=== PATIENT | female | born 1940 | race Caucasian/White ===

== ENCOUNTER → 2016-08-03 | Outpatient (CLI) | payer MEDICARE | LOC: EMI 07-29 10:00 → MRI 10:57 → EMI 11:15 → MRI 11:15 | DX: M48.06 Spinal stenosis, lumbar region (principal); R55 Syncope and collapse; R29.6 Repeated falls; M51.36 Other intervertebral disc degeneration, lumbar region; M47.816 Spondylosis without myelopathy or radiculopathy, lumbar region | CPT/HCPCS: 72148 ==

== ENCOUNTER → 2020-03-31 | Outpatient (CLI) | payer MEDICARE ==
[~2020-03-31] MED LIST: AMLODIPINE BESYL5 MG PO; CELEXA10 MG PO; CITALOPRAM PO; CYCLOBENZAPRINE5 MG PO; ECOTRIN81 MG PO; LORAZEPAM0.5 MG PO; MECLIZINE HCL12.5 MG PO; MELOXICAM7.5 MG PO; PANTOPRAZOLE SO40 MG PO; PRAVASTATIN SOD40 MG PO; TOPROL XL25 MG PO; TYLENOL W/CODEIN1 E1 PO; VIT D2 PO; VITAMIN D250000 UNIT PO
== END ==
LOC: KOH-I 11:04
DX: R07.89 Other chest pain (principal)
CPT/HCPCS: 71046

== ENCOUNTER → 2020-05-17 | Outpatient (CLI) | payer MEDICARE | LOC: KOH-I 15:01 | DX: M54.6 Pain in thoracic spine (principal); M43.8X4 Other specified deforming dorsopathies, thoracic region; Z98.1 Arthrodesis status; M43.8X5 Other specified deforming dorsopathies, thoracolumbar region | CPT/HCPCS: 72070 ==

== ENCOUNTER → 2020-05-21 | Outpatient (CLI) | payer MEDICARE | LOC: KOH-I 11:19 | DX: S32.010A Wedge compression fracture of first lumbar vertebra, initial encounter for closed fracture (principal); S22.060A Wedge compression fracture of T7-T8 vertebra, initial encounter for closed fracture; S22.070A Wedge compression fracture of T9-T10 vertebra, initial encounter for closed fracture; S22.000A Wedge compression fracture of unspecified thoracic vertebra, initial encounter for closed fracture; R29.898 Other symptoms and signs involving the musculoskeletal system; M54.16 Radiculopathy, lumbar region; M81.0 Age-related osteoporosis without current pathological fracture; R29.6 Repeated falls; M54.14 Radiculopathy, thoracic region; M40.204 Unspecified kyphosis, thoracic region; R29.890 Loss of height; M51.86 Other intervertebral disc disorders, lumbar region | CPT/HCPCS: 72146 ==

== ENCOUNTER → 2020-11-17 | Outpatient (CLI) | payer MEDICARE | LOC: KOH-I 09:19 | DX: R77.9 Abnormality of plasma protein, unspecified (principal); S22.009A Unspecified fracture of unspecified thoracic vertebra, initial encounter for closed fracture; M89.9 Disorder of bone, unspecified | CPT/HCPCS: 77075 ==

== ENCOUNTER → 2021-05-05 | Outpatient (CLI) | payer MEDICARE | LOC: KOH-I 15:01 | DX: R06.02 Shortness of breath (principal); M54.50 Low back pain, unspecified; M51.34 Other intervertebral disc degeneration, thoracic region; M51.36 Other intervertebral disc degeneration, lumbar region | CPT/HCPCS: 71046; 72070; 72100 ==

== ENCOUNTER → 2021-09-13 | Day surgery (SDC) | payer MEDICARE ==
[~2021-09-13] MED LIST changes: +DORZOLAMIDE-TIM10 ML OP; +GINSENG; +MYCOSTATIN100000 UTS PO; +VITAMIN B12 OTC
== END | disposition home or self-care (01) ==
LOC: OR 07:58
DX: R13.10 Dysphagia, unspecified (principal); K22.89 Other specified disease of esophagus; C90.00 Multiple myeloma not having achieved remission; D50.9 Iron deficiency anemia, unspecified; I10 Essential (primary) hypertension; E78.5 Hyperlipidemia, unspecified; E88.09 Other disorders of plasma-protein metabolism, not elsewhere classified; M81.0 Age-related osteoporosis without current pathological fracture; M34.9 Systemic sclerosis, unspecified; E66.3 Overweight; Z88.2 Allergy status to sulfonamides; Z79.82 Long term (current) use of aspirin; Z79.899 Other long term (current) drug therapy
CPT/HCPCS: J2704; J7040

== ENCOUNTER → 2021-09-21 | Outpatient (CLI) | payer MEDICARE | LOC: KOH-I 15:13 | DX: M25.551 Pain in right hip (principal) | CPT/HCPCS: 73502 ==